=== PATIENT | male | born 1940 ===

== ENCOUNTER 2024-09-15 18:30 | Day surgery (SDC) | payer OTHER, SELFPAY ==
[2024-09-15 13:05] VITALS: BP 128/64
--- NOTE | 2024-09-15 16:29 | ED.GENMED ---
History of Present Illness
<Neeta Sandhu PA-C - Last Filed: 09/15/24 21:22>
General
Chief Complaint: Swallowing Problem
Source: patient
Exam Limitations: none
Time Seen by Provider: 09/15/24 16:01
History of Present Illness
History of Present Illness:
83yoM with a history of type 2 diabetes, hypertension, aortic stenosis, and CKD presenting with his daughter for evaluation of dysphagia. Patient was eating noodles with shredded chicken last night. He had an episode of choking while eating and
started to cough. He had persistent cough throughout the night but was eventually able to go to sleep. He was feeling better this morning when he woke up. He tried to eat and take his medications around noon but was unable to. He regurgitated up
his undigested pill. He has tried drink liquids and carbonated beverages without any relief. He denies any shortness of breath.
Phy Exam
<Neeta Sandhu PA-C - Last Filed: 09/15/24 21:22>
General Physical Exam
General Presentation: well appearing
General Skin: warm and dry
General Habitus: normal and elderly
General Mental: alert
ENT Exam
ENT Exam: pharynx normal and normocephalic
Additional ENT: Tolerating oral secretions
Cardiovascular Exam
Cardiovascular Exam: systolic murmur
Pulmonary Exam
Pulmonary Exam: lungs clear, no respiratory distress, no rales, no crackles, no rhonchi and no wheezing
Neurological Exam
Neurological Exam: alert
[place] Coma Scale
Eye Opening: Spontaneous
Verbal Response: Oriented
Motor Response: Obeys Commands
GCS Total Score: 15
Skin Exam
Skin Exam: normal color and warm/dry
Psychiatric Exam
Psychiatric Exam: normal mood/affect
Course
<Neeta Sandhu PA-C - Last Filed: 09/15/24 21:22>
Orders/Labs/Results
Orders:
Orders
09/15/24 16:28
Glucagon [GlucaGen] 1 mg IV NOW STA
CR Chest - 2 Views Urgent
Comment:
Reason For Exam: cough
09/15/24 16:50
Glucagon [GlucaGen] 1 mg IV ONCE ONE
09/15/24 17:44
Glycopyrrolate [Robinul] 0.2 mg .ROUTE .STK-MED ONE
Lidocaine 2% Mpf [Xylocaine Mpf 2%] 100 mg .ROUTE .STK-MED ONE
Phenylephrine HCl/0.9% NaCl [Chuy-Synephrine] 1,000 mcg .ROUTE .STK-MED ONE
Propofol [Diprivan] 20 ml .ROUTE .STK-MED
Rocuronium Sundown [Rocuronium] 50 mg .ROUTE .STK-MED ONE
Succinylcholine Chloride [Succinylcholine] 200 mg .ROUTE .STK-MED ONE
Sugammadex Sodium [Bridion] 200 mg .ROUTE .STK-MED ONE
ePHEDrine SULFATE [Emerphed] 50 mg .ROUTE .STK-MED ONE
09/15/24 19:50
Pantoprazole [Protonix IV] 40 mg IV NOW STA
09/15/24 19:57
0.9% Sodium Chloride [Nss (Preservative Free)] 10 ml IV NOW STA
Vital Signs
Initial and Last Documented VS:
Initial Vital Signs
Temp Pulse Resp BP Pulse Ox
98.2 F 70 16 128/64 95
09/15/24 13:05 09/15/24 13:05 09/15/24 13:05 09/15/24 13:05 09/15/24 13:05
Last Documented Vital Signs
Temp Pulse Resp BP Pulse Ox
97.7 F 64 17 103/59 97
09/15/24 19:47 09/15/24 20:00 09/15/24 20:00 09/15/24 20:00 09/15/24 20:15
<Genesis Jacinto MD - Last Filed: 09/15/24 17:05>
Orders/Labs/Results
Orders:
Orders
09/15/24 16:28
Glucagon [GlucaGen] 1 mg IV NOW STA
CR Chest - 2 Views Urgent
Comment:
Reason For Exam: cough
09/15/24 16:50
Glucagon [GlucaGen] 1 mg IV ONCE ONE
09/15/24 17:44
Glycopyrrolate [Robinul] 0.2 mg .ROUTE .STK-MED ONE
Lidocaine 2% Mpf [Xylocaine Mpf 2%] 100 mg .ROUTE .STK-MED ONE
Phenylephrine HCl/0.9% NaCl [Chuy-Synephrine] 1,000 mcg .ROUTE .STK-MED ONE
Propofol [Diprivan] 20 ml .ROUTE .STK-MED
Rocuronium Sundown [Rocuronium] 50 mg .ROUTE .STK-MED ONE
Succinylcholine Chloride [Succinylcholine] 200 mg .ROUTE .STK-MED ONE
Sugammadex Sodium [Bridion] 200 mg .ROUTE .STK-MED ONE
ePHEDrine SULFATE [Emerphed] 50 mg .ROUTE .STK-MED ONE
09/15/24 19:50
Pantoprazole [Protonix IV] 40 mg IV NOW STA
09/15/24 19:57
0.9% Sodium Chloride [Nss (Preservative Free)] 10 ml IV NOW STA
Vital Signs
Initial and Last Documented VS:
Initial Vital Signs
Temp Pulse Resp BP Pulse Ox
98.2 F 70 16 128/64 95
09/15/24 13:05 09/15/24 13:05 09/15/24 13:05 09/15/24 13:05 09/15/24 13:05
Last Documented Vital Signs
Temp Pulse Resp BP Pulse Ox
97.7 F 64 17 103/59 97
09/15/24 19:47 09/15/24 20:00 09/15/24 20:00 09/15/24 20:00 09/15/24 20:15
<Neeta Sandhu PA-C - Last Filed: 09/15/24 21:22>
MDM/Problems Addressed
Differential Diagnosis Includes:
83yoM here with dysphagia. Started after eating dinner last night. Unable to tolerate PO intake. Regurgitated up undigested pill earlier today. VSS. He is well appearing in no distress. He is tolerating oral secretions without difficulty.
Differential diagnosis includes but is not limited to: food bolus, achalasia, Zenker's diverticulum, esophagitis
Initial ED plan: Will check CXR. IV glucagon ordered.
<Neeta Sandhu PA-C - Last Filed: 09/15/24 21:22>
*Critical Care Note
Total Time (30-74mins, 75-104mins- exclusive of procedures): Not Applicable
<Neeta Sandhu PA-C - Last Filed: 09/15/24 21:22>
Update Note
Update Note:
Chest x-ray appears clear. Patient given 2 doses of IV glucagon without any improvement. He trialed sips of water but spit up shortly afterwards. Case discussed with gastroenterology who will take patient for endoscopy. Patient transported
directly to the GI lab.
ED Attending Note
<Neeta Sandhu PA-C - Last Filed: 09/15/24 21:22>
-
Portions of this chart may have been created with voice recognition software.� Occasional wrong word or��sound alike� substitutions may have occurred due to the inherent limitations of voice recognition software.
<Genesis Jacinto MD - Last Filed: 09/15/24 17:05>
ED Attending Note
Patient seen and examined by attending physician: Yes
I performed the substantive portion of visit, reviewed & personally made and approve the management plan that is documented in note by myself or ALON.: Yes
ED Attending Note:
83-year-old male presents emergency department after being unable to tolerate p.o. after he felt like he 'choked' while eating dinner last night which included, followed by vomiting. He has been unable to tolerate liquids or solids since that time.
He denies chest pain, shortness of breath, fever, chills, nausea, or other complaints. Patient will be given glucagon trial, consult with GI, consideration for EGD.
Discharge Plan
Departure
Patient Disposition: GI LAB
Date of Disposition: 09/15/24
Time of Disposition: 17:17
Presentation/result/management discussed w/ accepting MD/DO: Dr. Mayers
Discharge Problem:
Food impaction of esophagus
Interventions
Interventions:
*Risk Screen - Suicide Last Done: 09/15/24 13:05
*General Assessment Last Done: 09/15/24 16:25
*Neglect/Abuse Screening Last Done: 09/15/24 13:05
*ED- Fall Risk Assessment Last Done: 09/15/24 16:25
*ED COVID-19 Vaccine History Last Done: 09/15/24 16:25
*Nursing Disposition Last Done: 09/15/24 18:30
ED-EENT Assessment Last Done: 09/15/24 16:28
VE-Czkjwy-Zjwemdfkiq Assessment Last Done: 09/15/24 16:28
ED- Pulmonary Assessment Last Done: 09/15/24 16:28
ED- Neurological Assessment Last Done: 09/15/24 16:28
Discharge Date and Time
Discharge Date/Time: 09/15/24 18:30
[2024-09-15] MEDS: GlucaGen 1 MG IV ×2 (16:32→16:58)
[2024-09-15 16:35] VITALS: BP 124/66
[2024-09-15 18:00] VITALS: BP 121/62
--- NOTE | 2024-09-15 18:24 | CON.GI ---
Consultation
-
Date/Time Consultation Requested: 09/15/2024
Date/Time Consultation Performed: 09/15/2024
Requesting Provider:
Performing Provider:
Reason for Consultation: Food impaction
Medical History
Chief Complaint / HPI
Chief Complaint: food impaction
History of Present Illness:
83yoM with a history of type 2 diabetes, hypertension, aortic stenosis, and CKD brought in by daughter for not able to swallow food or liquids since dinner last night. Patient was eating noodles with shredded chicken last night. He had an episode
of choking while eating and started to cough,this am tried to eat and take his medications around noon but was unable to. He regurgitated up his undigested pill. He has tried drink liquids and carbonated beverages without any relief. patietn
denies abdominal pain, nausea, vomiting ,heartburn or prior h/o dysphagia., No NSAID use., Never had EGD or food impaction.Doesnt not take PPI or NSAID, no FH of colon cancer.
Past Medical History
Past Medical History: HTN and NIDDM
Social History
Tobacco: Non-Smoker
Alcohol: None
Family History
Family History: Reviewed & Not Pertinent
Allergies / Home Medications
Allergy/AdvReac Type Severity Reaction Status Date / Time
No Known Allergies Allergy Verified 09/15/24 13:05
�Medication �Instructions �Recorded
aspirin 81 mg tablet 81 mg PO DAILY 09/15/24
empagliflozin 10 mg tablet 10 mg PO DAILY 09/15/24
(Jardiance)
furosemide 20 mg tablet (Lasix) 20 mg PO DAILY 09/15/24
metoprolol succinate 25 mg 75 mg PO DAILY 09/15/24
tablet,extended release 24 hr
(Toprol XL)
simvastatin 40 mg tablet (Zocor) 40 mg PO DAILY 09/15/24
sitagliptin phosphate 100 mg 100 mg PO DAILY 09/15/24
tablet (Januvia)
zolpidem 5 mg tablet (Ambien) 5 mg PO HSPRN PRN sleep 09/15/24
Review of Systems
-
Respiratory: Reports Cough
Vital Signs
Temp Pulse Resp BP Pulse Ox
98.2 F 70 16 121/62 94
09/15/24 13:05 09/15/24 13:05 09/15/24 13:05 09/15/24 18:00 09/15/24 17:09
Physical Exam
Exam
GI: Soft, Non Tender, Non Distended and Normal Bowel Sounds
Results
Diagnostic Image Results:
Prior GI Procedures:
EGD:
Colonoscopy:
Assessment / Plan
-
-Food impaction s/p retrieval of food
- Food in the esophagus. Removal was successful.
- Severe erosive esophagitis with no bleeding.
- A large amount of food (residue) in the stomach.
- Normal examined duodenum.
Recommendation: - Clear liquid diet for 1 day and then soft diet
thereafter. Possible esophageal dysmotility
contributing to the food impacton. Will have to modify
to soft diet indefinetely as this can happen again and
if diet needs to be advanced, needs swallowing
evaluation prior to advancing toregular diet.
- Use Protonix (pantoprazole) 40 mg PO BID.
- Reviewed with daughter in detail and Rx print out for pantoprazole given to the pt's daughter.
- Avoid NSAID's
-
-
Thank you for consultation and allowing me to participate in the patient's care. Please call the transportation associate GI physician during the after hours with any questions or concerns.
[2024-09-15 19:47] VITALS: BP 127/64
[2024-09-15 20:00] VITALS: BP 103/59
[2024-09-15] MEDS: NSS (PRESERVATIVE FREE) 10 ML IV (20:03)
[2024-09-15] MEDS: PROTONIX IV 40 MG IV (20:03)
== END 2024-09-15 19:51 | disposition home or self-care (01) ==
LOC: SDS 18:30
PROVIDERS: ATTENDING PHYSICIAN Internal Medicine Gastroenterology; EMERGENCY PHYSICIAN Emergency Medicine; FAMILY PHYSICIAN Family Medicine
DX: T18.128A Food in esophagus causing other injury, initial encounter (principal); W44.F3XA Food entering into or through a natural orifice, initial encounter; K22.10 Ulcer of esophagus without bleeding; T18.2XXA Foreign body in stomach, initial encounter
CPT/HCPCS: 43247; 71046; 96374; 99284; J1610

== ENCOUNTER → 2024-09-16 12:39 | Outpatient (REF) | payer OTHER, SELFPAY | LOC: HWRCS 12:39 | PROVIDERS: ATTENDING PHYSICIAN Nuclear Medicine Nuclear Cardiology; FAMILY PHYSICIAN Family Medicine | DX: R06.02 Shortness of breath (principal); I35.0 Nonrheumatic aortic (valve) stenosis | CPT/HCPCS: 93306 ==

== ENCOUNTER 2024-10-13 21:34 | Emergency (ER) | payer OTHER, SELFPAY ==
[2024-10-13 21:44] VITALS: BP 120/69
[2024-10-13 21:58] VITALS: BP 127/57
[2024-10-13 22:10] VITALS: BMI 23.1
[2024-10-13 22:19] LABS: % Basophils 1.1 % (0-2); % Eosinophils 4.4 % (0-6); % Immature Granulocytes 0.6 % (0-0.5); % Lymphocytes 25.4 % (20.5-51.1); % Monocytes 9.1 % (1.7-9.3); % Neutrophils 59.4 % (42.2-75.2); Absolute Basophils 0.1 10^3/uL (0-0.2); Absolute Eosinophils 0.4 10^3/uL (0-0.7); Absolute Immature Granulocytes 0.1 10^3/uL (0-0.05); Absolute Lymphocytes 2.3 10^3/uL (1.2-3.4); Absolute Monocytes 0.8 10^3/uL (0.1-0.6); Absolute Neutrophils 5.3 10^3/uL (1.4-6.5); Hematocrit 36.9 % (39.0-52.0); Hemoglobin 13.3 g/dL (13.0-18.0); Mean Corpuscular Hgb 31.6 pg (27.0-31.0); Mean Corpuscular Volume 87.6 fL (80.0-94.0); Mean Platelet Volume 9.7 fL (7.4-10.4); Nucleated Red Blood Cells % 0 % (-); Platelet Count 172 10^3/uL (130-400); Red Blood Cell Count 4.21 10^6/uL (4.70-6.10); Red Cell Dist. Width 13.7 % (11.5-14.5); White Blood Cell Count 8.9 10^3/uL (4.8-10.8)
[2024-10-13 22:31] LABS: Urine Albumin 1+ (Neg - Trace); Urine Bilirubin Negative (Negative); Urine Character Clear (Clear); Urine Color Yellow; Urine Glucose 4+ (Negative); Urine Ketone Negative (Negative); Urine Leukocyte Negative (Negative); Urine Nitrite Negative (Negative); Urine Occult Blood Negative (Negative); Urine Urobilinogen Negative (Neg - 1+); Urine pH 6.5 (5.0-9.0)
[2024-10-13 22:40] LABS: Urine Bacteria Few (Negative); Urine Red Blood Cell 0-2 /HPF (0-2); Urine Squamous Cell 0-2 /LPF (Few); Urine White Cell 0-2 /HPF (0-5)
[2024-10-13 22:46] LABS: ALT (SGPT) 15 U/L (0-50); AST (SGOT) 24 U/L (17-59); Albumin 3.8 g/dl (3.5-5.0); Alkaline Phosphatase 84 U/L (38-126); Blood Urea Nitrogen 24 mg/dl (9-20); Calcium 9.3 mg/dl (8.4-10.2); Carbon Dioxide 26 mmol/L (22-30); Chloride 105 mmol/L (98-107); Estimated Creatinine Clearance 37 ml/min; Glucose 207 mg/dl (70-99); Sodium 139 mmol/L (135-145); Total Bilirubin 0.8 mg/dl (0.2-1.3); Total Protein 6.7 g/dl (6.3-8.2); eGFR 45.06
[2024-10-13 23:00] VITALS: BP 113/60
--- NOTE | 2024-10-13 23:47 | ED.GENMED ---
History of Present Illness
General
Chief Complaint: Weakness
Source: patient and family (daughters)
Time Seen by Provider: 10/13/24 22:19
History of Present Illness
History of Present Illness:
Patient to ED for eval of weakness. Daughters state that he fell a few months ago while getting on a cruise ship. He injured his right wrist but did not have xrays. He was visiting his girlfriend in the hospital a few weeks later and fell off of
the couch injuring his wrist again. Xrays confirmed wrist fx. He went to rehab for a few weeks and is now staying at his daughters home. He hopes to return to his home in [place] when his girlfriend is released for rehab. Daughter states that at times
he wont get OOB. He does not offer any reason, just wants to sleep. Brought to ED today to r/o underlying cause. He is awake and alert, in no distress, has no complaints.
Past History
Past History
ED Past Medical History: HTN and NIDDM
Review of Systems
Review of Systems
Allergies reviewed?: Yes
All Other Systems: ROS reviewed and negative except as documented in HPI and ROS
EENT: Reports no symptoms
Respiratory: Reports no symptoms
Cardiac: Reports no symptoms
ABD/GI: Reports no symptoms
: Reports no symptoms
Musculoskeletal: Reports no symptoms
Skin: Reports other (skin tear right miles, left elbow)
Neurological: Reports weakness
Psychiatric: Reports no symptoms
Phy Exam
General Physical Exam
General Presentation: well appearing and no apparent distress
General age: appears stated age
General Skin: warm and dry
General Habitus: normal
General Mental: alert
Cardiovascular Exam
Cardiovascular Exam: regular rate/rhythm and no edema
Pulmonary Exam
Pulmonary Exam: lungs clear and no respiratory distress
Neurological Exam
Neurological Exam: alert, oriented x3, CN II-XII intact, no motor deficits and speech normal
Musculoskeletal Exam
Musculoskeletal Exam: full ROM and neuro vasc intact
Skin Exam
Skin Exam: normal color and warm/dry
Psychiatric Exam
Psychiatric Exam: normal mood/affect
Course
Orders/Labs/Results
Orders:
Orders
10/13/24 22:09
Complete Blood Count/With Diff Urgent
Comprehensive Metabolic Panel Urgent
Urinalysis Reflex To Culture Urgent
Date Specimen was Collected: 10/13/24
Time Specimen was Collected: 21:55
Urine Microscopic Reflex Cult Urgent
10/13/24 22:36
EKG [Electrocardiogram (*1)] Urgent
Reason for Study: Tachycardia
EKG- Treatment ONCE
Abnormal Lab Results
10/13/24
22:09
RBC 4.21 L 10^6/uL
(4.70-6.10)
Hct 36.9 L %
(39.0-52.0)
MCH 31.6 H pg
(27.0-31.0)
Abs Immat Gran (auto) 0.1 H 10^3/uL
(0-0.05)
Absolute Monos (auto) 0.8 H 10^3/uL
(0.1-0.6)
Immature Gran % 0.6 H %
(0-0.5)
BUN 24 H mg/dl
(9-20)
Creatinine 1.5 H mg/dL
(0.7-1.3)
Glucose 207 H mg/dl
(70-99)
Urine Bacteria (Reflex) Few A
(Negative)
Urine Glucose 4+ A
(Negative)
Urine Albumin (Reflex) 1+ A
(Neg - Trace)
10/13/24 22:09
10/13/24 22:09
Vital Signs
Initial and Last Documented VS:
Initial Vital Signs
Temp Pulse Resp BP Pulse Ox
97.6 F 66 18 120/69 98
10/13/24 21:44 10/13/24 21:44 10/13/24 21:44 10/13/24 21:44 10/13/24 21:44
Last Documented Vital Signs
Temp Pulse Resp BP Pulse Ox
97.6 F 60 12 127/57 99
10/13/24 21:44 10/13/24 22:30 10/13/24 22:30 10/13/24 21:58 10/13/24 22:15
*Pulse Oximetry
SaO2: 99
Oxygen Mode of Delivery: Room air
Patient hypoxic: no
*EKG
Rate: bradycardiac
Rhythm: sinus
*Critical Care Note
Total Time (30-74mins, 75-104mins- exclusive of procedures): Not Applicable
Update Note
Update Note:
Patient brought to ED by daughters for report of weakness. Family concerned that at times he wants to sleep all day. He offers no complaints. Labs reviewed with them. Creat of 1.5 noted. Pateint believes that this is normal for him. Given copy
of labs for followup with his PCP. VSS, he is afebrile.EKG sinus bradycardia. No concerning findings on his exam tonight Will discharge obie with daughers. Given instructions on s/s to return to ED and they are agreeable to plan.
ED Attending Note
-
Portions of this chart may have been created with voice recognition software.� Occasional wrong word or��sound alike� substitutions may have occurred due to the inherent limitations of voice recognition software.
Discharge Plan
Departure
Patient Disposition: Home (Routine Discharge)
Date of Disposition: 10/13/24
Time of Disposition: 23:45
Patient with high blood pressure during this ER visit?: No
Covid-19: Not Applicable
Discharge Problem:
Weakness
Instructions: Generalized Weakness (DC)
Prescriptions:
No Action
simvastatin [Zocor] 40 mg Tablet
40 mg PO DAILY
aspirin 81 mg Tablet
81 mg PO DAILY
zolpidem [Ambien] 5 mg Tablet
5 mg PO HSPRN PRN (Reason: sleep)
furosemide [Lasix] 20 mg Tablet
20 mg PO DAILY
metoprolol succinate [Toprol XL] 25 mg Tablet Extended Release 24 Hr
75 mg PO DAILY
Januvia 100 mg Tablet
100 mg PO DAILY
Jardiance 10 mg Tablet
10 mg PO DAILY
Referrals:
Alli Rivers DO [Family Provider, Family Practice] - Keep scheduled appt
Activity Restrictions/Additional Instructions:
Return to the emergency department immediately for any changes in/worseneing of your symptoms.
Interventions
Interventions:
*Risk Screen - Suicide Last Done: 10/13/24 21:44
*General Assessment Last Done: 10/13/24 21:44
*Neglect/Abuse Screening Last Done: 10/13/24 21:44
*ED- Fall Risk Assessment Last Done: 10/13/24 21:44
*ED COVID-19 Vaccine History Last Done: 10/13/24 21:44
ED- Cardiac Assessment Last Done: 10/13/24 22:34
ED- Neurological Assessment Last Done: 10/13/24 22:34
ED- Pulmonary Assessment Last Done: 10/13/24 22:34
Discharge Date and Time
Print Language: TURKISH
== END 2024-10-14 00:07 | disposition home or self-care (01) ==
LOC: EMR 21:34
PROVIDERS: EMERGENCY PHYSICIAN Emergency Medicine; FAMILY PHYSICIAN Family Medicine
DX: R53.1 Weakness (principal); R00.1 Bradycardia, unspecified; I10 Essential (primary) hypertension; E11.9 Type 2 diabetes mellitus without complications; Z87.828 Personal history of other (healed) physical injury and trauma
CPT/HCPCS: 99284; 80053; 81003; 81015; 85025; 93005